=== PATIENT | male | born 1970 | race American Indian/Alaskan Native ===

== ENCOUNTER 2017-04-20 21:15 | Emergency (ER) | payer SELFPAY ==
[2017-04-20] MEDS ORDERED: CATAPRES ONE (23:32)
[2017-04-20] MEDS ORDERED: TYLENOL ONE (23:33)
[2017-04-20] MEDS ORDERED: CATAPRES PO ONE (23:37)
[2017-04-20] MEDS ORDERED: TYLENOL PO ONE (23:37)
[2017-04-20 23:47] LABS: Hematocrit 45.9 % (35.5-45.6); Hemoglobin 15.4 gm/dl (11.8-15.2); Mean Corpuscular HGB Conc 34 % (32-34); Mean Corpuscular Hemoglobin 28 pg (28-32); Mean Corpuscular Volume 85 fl (84-94); Platelet Count 329 K/mm3 (140-440); Red Blood Count 5.41 M/mm3 (3.65-5.03); Red Cell Distribution Width 14.6 % (13.2-15.2)
[2017-04-21 00:12] LABS: Alanine Aminotransferase 22 units/L (7-56); Albumin 3.9 g/dL (3.9-5); BUN/Creatinine Ratio 14; Blood Urea Nitrogen 15 mg/dL (9-20); Calcium 8.6 mg/dL (8.4-10.2); Hemolysis Index 19
[2017-04-21 04:06] LABS: INR 0.95 (0.87-1.13)
[2017-04-21 04:07] LABS: Partial Thromboplastin Time 33.2 Sec. (24.2-36.6); Thrombin Time 15.8 Sec. (15.1-19.6)
--- NOTE | 2017-04-21 04:45 | Cat Scan Report ---
FINAL REPORT EXAM: CT HEAD/BRAIN WO CON HISTORY: H/A WITH BLURRED VISION HTN TECHNIQUE: Routine axial imaging was obtained of the brain without IV contrast. FINDINGS: The ventricular system is appropriate in size and is symmetric. There is no evidence of acute stroke or hemorrhage. The basal cisterns appear normal. The visualized sinuses are clear. The mastoid air cells are well pneumatized. The calvarium appears intact. IMPRESSION: Within normal limits.
[2017-04-21 05:01] VITALS: BP 160/114
== END 2017-04-21 | disposition left against medical advice (07) ==
LOC: ED 21:15
DX: R03.0 Elevated blood-pressure reading, without diagnosis of hypertension (principal); R09.81 Nasal congestion; J02.9 Acute pharyngitis, unspecified; Z53.21 Procedure and treatment not carried out due to patient leaving prior to being seen by health care provider
CPT/HCPCS: 36415; 70450; 80053; 84484; 85027; 85610; 85670; 85730; 93005; 93010; G0480; 80320